=== PATIENT | female | born 1980 | race Caucasian/White ===

== ENCOUNTER → 2017-06-21 | Outpatient (CLI) | payer BC ==
[~2017-06-21] MED LIST: MOTRIN 600600 MG/TAB PO; PERCOCET 325 MG1 TA2 PO; PRENATAL1 TA1 PO; PRILOSEC OTC20 MG PO
== END ==
LOC: COL.RAD 10:18
DX: R55 Syncope and collapse (principal); R42 Dizziness and giddiness; R51 Headache
CPT/HCPCS: A9585

== ENCOUNTER → 2020-07-09 | Outpatient (CLI) | payer BC | LOC: MC.RAD 08:45 | DX: Z12.31 Encounter for screening mammogram for malignant neoplasm of breast (principal) ==

== ENCOUNTER → 2022-02-20 | Outpatient (CLI) | payer BC | LOC: MC.RAD 08:56 | DX: Z12.31 Encounter for screening mammogram for malignant neoplasm of breast (principal) ==

== ENCOUNTER → 2024-07-09 | Outpatient (CLI) | payer BC | LOC: MC.RAD 11:02 | DX: Z12.31 Encounter for screening mammogram for malignant neoplasm of breast (principal) ==